=== PATIENT | male | born 1955 | race Caucasian/White ===

== ENCOUNTER 2016-12-30 20:11 | Inpatient (IN) | payer MEDICAID ==
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
[2016-12-30 22:16] LABS: BASO % 0.1 % (0.0-2.0); EOS # 0.3 K/uL (0.0-0.7); EOS % 0.8 % (0.0-4.0); LYMPH % 91.5 % (20.0-40.0); MEAN CELL VOLUME 92.9 fl (80.0-94.0); MEAN CORPUSCULAR HEMOGLOBIN 30.2 pg (27.0-31.0); MEAN CORPUSCULAR HGB CONC 32.5 g/dL (33.0-37.0); MEAN PLATELET VOLUME 8.4 fl (7.2-11.7); MONO # 0.6 K/uL (0.0-0.8); MONO % 1.6 % (0.0-10.0); NEUT # 2.4 K/uL (1.8-7.0); NRBC % 0.5 % (0.0-0.0); PLATELET COUNT 164 K/uL (130-400); RED CELL DISTRIBUTION WIDTH 15.6 % (11.5-14.5)
[2016-12-30 22:23] LABS: BLOOD UREA NITROGEN 16 mg/dl (9-20); CALCIUM 9.3 mg/dL (8.4-10.2); CARBON DIOXIDE 26 mmol/L (22-30); CHLORIDE 105 mmol/L (98-107); GFR AFRICAN-AMERICAN > 60; GLUCOSE,RANDOM 96 mg/dL (75-110); POTASSIUM 3.9 MMOL/L (3.6-5.0); SODIUM 139 mmol/l (132-148)
[2016-12-30 22:43] LABS: WHITE BLOOD COUNT 39.4 K/uL (4.8-10.8)
[2016-12-30] MEDS ORDERED: Sodium Chloride 0.9% 50 ML IV ONE (22:55)
[2016-12-30] MEDS ORDERED: Iodixanol 320 MG/ML 100 ML BOTTLE IV ONE (22:55)
[2016-12-30] MEDS ORDERED: levoFLOXacin 500 mg in D5W 500 MG/100 ML BAG IVPB STA (23:11)
[2016-12-30 23:15] LABS: NEUTROPHIL 3 % (42-75); TOTAL CELLS COUNTED 100
[2016-12-30 23:16] LABS: EOSINOPHIL 2 % (0-7)
[2016-12-30 23:41] LABS: VENOUS BLOOD GAS BASE EXCESS 4.1 mmol/L (0.0-2.0); VENOUS BLOOD GAS PCO2 41 mmHg (40-60); VENOUS BLOOD PH 7.45 (7.32-7.43)
[2016-12-30 23:44] LABS: BASO # 0.1 K/uL (0.0-0.2); BASO % 0.2 % (0.0-2.0); EOS # 0.3 K/uL (0.0-0.7); EOS % 0.8 % (0.0-4.0); LYMPH % 91.3 % (20.0-40.0); MEAN CELL VOLUME 93.1 fl (80.0-94.0); MEAN CORPUSCULAR HEMOGLOBIN 29.6 pg (27.0-31.0); MEAN CORPUSCULAR HGB CONC 31.8 g/dL (33.0-37.0); MEAN PLATELET VOLUME 8.3 fl (7.2-11.7); MONO # 0.6 K/uL (0.0-0.8); MONO % 1.4 % (0.0-10.0); NEUT # 2.5 K/uL (1.8-7.0); NEUT % 6.3 % (50.0-75.0); NRBC % 0.4 % (0.0-0.0); RED CELL DISTRIBUTION WIDTH 15.3 % (11.5-14.5)
[2016-12-30 23:49] LABS: WHITE BLOOD COUNT 39.4 K/uL (4.8-10.8)
[2016-12-30 23:57] LABS: PARTIAL THROMBOPLASTIN TIME 34.4 Seconds (25.6-37.1)
[2016-12-31] MEDS ORDERED: levoFLOXacin 500 mg in D5W 500 MG/100 ML BAG IVPB ONE (00:09)
--- NOTE | 2016-12-31 00:17 | ED PDOC ---
- Laboratory Results Result Diagrams: 12/31/16 08:38 12/31/16 08:38 - ECG O2 Sat by Pulse Oximetry: 100 (RA) Pulse Ox Interpretation: Normal Medical Decision Making Medical Decision Makin:15 Patient signed out to me from Dr. Aguero. CT scan pending. 00:[address] scan reviewed. Findings noted as follows: No pulmonary embolism. No aortic dissection or aneurysm. No pleural or pericardial effussions. Faint bibasilar hazy opacities. Linear consolidation in the right lung base and bandlike consolidation in the left lower lung, likely platelike atelectasis. There appears to be intraluminal material in the bronchi supplying the left lower lung consolidation on series 3 images 72 through 77. Mediastinal lymph nodes are present. Punctate 3 mm partially calcified nodule right midlung There are innumerable renal lesions of varying attenuation (hypo, iso, hyper) incompletely evaluated on this study. Recommend followup imaging as seen previously. There is a faint 4 cm right hepatic lesion that does not appear to represent a simple cyst and followup is recommended. Compression fracture with anterior angulation T12 age indeterminate. IMPRESSION: Bilateral lower lung consolidation greater on the left, where there appears to be endobronchial material. Non acute findings in the upper abdomen for which followup is recommended as discussed above. 00:30 Patient will be admitted for further treatment and stabilization. Case was discussed with Larry Ruvalcaba NUCLEAR W[employer]E PROCESS OPERATOR for Dr. Salazar, medicine pulmonology physician. Diagnoses: pneumonia, leukocytosis Scribe Attestation: Documented by Sheeba Muñoz, acting as a scribe for Miguel Pace MD. Provider Scribe Attestation: All medical record entries made by the Scribe were at my direction and personally dictated by me. I have reviewed the chart and agree that the record accurately reflects my personal performance of the history, physical exam, medical decision making, and the department course for this patient. I have also personally directed, reviewed, and agree with the discharge instructions and disposition. Disposition Discussed With : Larry Ruvalcaba Doctor Will See Patient In The: Hospital Counseled Patient/Family Regarding: Studies Performed, Diagnosis - Clinical Impression Clinical Impression: Pneumonia, Leukocytosis - POA Present On Arrival: None - Disposition Disposition: Transfer of Care Disposition Time: 00:30 Condition: FAIR
--- NOTE | 2016-12-31 00:19 | CT ---
EXAM: CT Angiography Chest With Intravenous Contrast EXAM DATE/TIME: 12/30/2016 10:48 PM CLINICAL HISTORY: 61 years old, male; Pain; Chest pain; Left-sided chest pain TECHNIQUE: Axial computed tomographic angiography images of the chest with intravenous contrast using pulmonary embolism protocol. All CT scans at this facility use one or more dose reduction techniques, viz.: automated exposure control; ma/kV adjustment per patient size (including targeted exams where dose is matched to indication; i.e. head); or iterative reconstruction technique. MIP reconstructed images were created and reviewed. Coronal and sagittal reformatted images were created and reviewed. CONTRAST: 80 mL of [id number] administered intravenously. COMPARISON: No relevant prior studies available. FINDINGS: No pulmonary embolism. No aortic dissection or aneurysm. No pleural or pericardial effussions. Faint bibasilar hazy opacities. Linear consolidation in the right lung base and bandlike consolidation in the left lower lung, likely platelike atelectasis. There appears to be intraluminal material in the bronchi supplying the left lower lung consolidation on series 3 images 72 through 77. Mediastinal lymph nodes are present. Punctate 3 mm partially calcified nodule right midlung There are innumerable renal lesions of varying attenuation (hypo, iso, hyper) incompletely evaluated on this study. Recommend followup imaging as seen previously. There is a faint 4 cm right hepatic lesion that does not appear to represent a simple cyst and followup is recommended. Compression fracture with anterior angulation T12 age indeterminate. IMPRESSION: Bilateral lower lung consolidation greater on the left, where there appears to be endobronchial material. Non acute findings in the upper abdomen for which followup is recommended as discussed above
[2016-12-31] MEDS ORDERED: cefTRIAXone (Rocephin) 1 gm Inj ONE (01:40)
[2016-12-31] MEDS ORDERED: Influenza Vaccine 18yr & older 0.5 ML/45 MCG SYR IM ONE (05:44)
[2016-12-31] MEDS ORDERED: Albuterol-Ipratrop 3 mg / 0.5 (3 ml) UD INH PRN (06:38)
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
--- NOTE | 2016-12-31 08:45 | CARD ---
APPROVED REPORT EKG Measurement Heart [id number] <Conclusion> Normal sinus rhythm Minimal voltage criteria for LVH, may be normal variant Borderline ECG
[2016-12-31 08:58] LABS: HEMATOCRIT 34.5 % (35.0-51.0); MEAN CELL VOLUME 93.6 fl (80.0-94.0); MEAN CORPUSCULAR HEMOGLOBIN 29.7 pg (27.0-31.0); MEAN CORPUSCULAR HGB CONC 31.7 g/dL (33.0-37.0); RED CELL DISTRIBUTION WIDTH 15.3 % (11.5-14.5); WHITE BLOOD COUNT 35.7 K/uL (4.8-10.8)
[2016-12-31 09:12] LABS: ALB/GLOB RATIO 1.4 (1.0-2.1); ALKALINE PHOSPHATASE 67 U/L (38-126); ALT/SGPT 27 U/L (21-72); AST/SGOT 20 U/L (17-59); BILIRUBIN,TOTAL 0.5 mg/dl (0.2-1.3); BLOOD UREA NITROGEN 15 mg/dl (9-20); CALCIUM 9.1 mg/dL (8.4-10.2); CARBON DIOXIDE 25 mmol/L (22-30); CHLORIDE 106 mmol/L (98-107); GFR AFRICAN-AMERICAN > 60; GLUCOSE,RANDOM 86 mg/dL (75-110); POTASSIUM 3.4 MMOL/L (3.6-5.0); SODIUM 140 mmol/l (132-148); TOTAL PROTEIN 6.2 G/DL (6.3-8.2)
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
[2016-12-31] MEDS ORDERED: Potassium Chloride 20 mEq ER Tab PO ONE (09:42)
[2016-12-31] MEDS: Enoxaparin 40 mg Syringe SC SCH (10:11)
[2016-12-31] MEDS ORDERED: Sodium Chloride 3% for Inhalation 4 ML VIAL.NEB IH PRN (11:20)
[2016-12-31 12:08] LABS: IRON 100 ug/dL (49-181)
[2016-12-31] MEDS: levoFLOXacin 500 mg in D5W 500 MG/100 ML BAG IVPB SCH (12:53)
[2016-12-31 18:11] LABS: FOLATE 5.9 ng/mL
[2017-01-01 07:37] LABS: HEMATOCRIT 35.1 % (35.0-51.0); MEAN CELL VOLUME 93.5 fl (80.0-94.0); MEAN CORPUSCULAR HGB CONC 32.1 g/dL (33.0-37.0); RED CELL DISTRIBUTION WIDTH 15.2 % (11.5-14.5); WHITE BLOOD COUNT 29.8 K/uL (4.8-10.8)
[2017-01-01 07:51] LABS: BLOOD UREA NITROGEN 11 mg/dl (9-20); CALCIUM 9.5 mg/dL (8.4-10.2); CARBON DIOXIDE 24 mmol/L (22-30); CHLORIDE 108 mmol/L (98-107); GFR AFRICAN-AMERICAN > 60; GLUCOSE,RANDOM 91 mg/dL (75-110); POTASSIUM 3.8 MMOL/L (3.6-5.0); SODIUM 141 mmol/l (132-148)
[2017-01-01] MEDS: levoFLOXacin 500 mg in D5W 500 MG/100 ML BAG IVPB SCH (09:38)
[2017-01-01] MEDS: Enoxaparin 40 mg Syringe SC SCH (09:39)
[2017-01-01] MEDS: Promethazine DM 6.25 mg-15 mg/5 ml Syrup PO PRN ×2 (09:40→21:29)
--- NOTE | 2017-01-01 10:31 | CP.PCM.PN ---
Subjective - Date & Time of Evaluation Date of Evaluation: 01/01/17 Time of Evaluation: 10:31 - Subjective Subjective: doing well, no complaints except mild improving left pleurictic cp no f/c, n/v/d wbc trending down to 29 bw noted Objective - Vital Signs/Intake and Output Vital Signs (last 24 hours): Temp Pulse Resp BP Pulse Ox 98.2 F 60 18 137/82 98 01/01/17 08:16 01/01/17 08:16 01/01/17 08:16 01/01/17 08:16 01/01/17 08:16 - Medications Medications: Current Medications Albuterol/Ipratropium (Duoneb 3 Mg/0.5 Mg (3 Ml) Ud) 3 ml INH RQ4 PRN PRN Reason: Shortness of Breath Cyanocobalamin (Vitamin B12 1000 Mcg/Ml Inj) 1,000 mcg IM DAILY [facility] Last Admin: 01/01/17 09:40 Dose: 1,000 mcg Enoxaparin Sodium (Lovenox) 40 mg SC DAILY [facility] PRN Reason: Protocol Last Admin: 01/01/17 09:39 Dose: 40 mg Levofloxacin/Dextrose (Levaquin 500mg) 500 mg in 100 mls @ 100 mls/hr IVPB DAILY [facility] Last Admin: 01/01/17 09:38 Dose: 100 mls/hr Ceftriaxone Sodium 1 gm/ (Sodium Chloride) 100 mls @ 100 mls/hr IVPB DAILY [facility] Last Admin: 01/01/17 09:36 Dose: 100 mls/hr Promethazine HCl/Dextromethorphan (Phenergan Dm Syrup) 5 ml PO Q6 PRN PRN Reason: Cough Last Admin: 01/01/17 09:40 Dose: 5 ml - Labs Labs: 01/01/17 07:00 01/01/17 05:30 PT 11.4 Seconds (9.8-13.1) 12/30/16 23:44 INR 1.1 (0.9-1.2) 12/30/16 23:44 APTT 34.4 Seconds (25.6-37.1) 12/30/16 23:44 - Constitutional Appears: Well, Non-toxic, No Acute Distress - Head Exam Head Exam: ATRAUMATIC, NORMAL INSPECTION, NORMOCEPHALIC - Eye Exam Eye Exam: EOMI, Normal appearance, PERRL Pupil Exam: NORMAL ACCOMODATION, PERRL - ENT Exam ENT Exam: Mucous Membranes Moist, Normal Exam - Neck Exam Neck Exam: Full ROM, Normal Inspection. absent: Lymphadenopathy - Respiratory Exam Respiratory Exam: Clear to Ausculation Bilateral, NORMAL BREATHING PATTERN - Cardiovascular Exam Cardiovascular Exam: REGULAR RHYTHM, RRR, +S1, +S2. absent: Murmur - GI/Abdominal Exam GI & Abdominal Exam: Soft, Normal Bowel Sounds. absent: Tenderness - Extremities Exam Extremities Exam: Full ROM, Normal Capillary Refill, Normal Inspection. absent : Joint Swelling, Pedal Edema - Back Exam Back Exam: NORMAL INSPECTION - Neurological Exam Neurological Exam: Alert, Awake, CN II-XII Intact, Normal Gait, Oriented x3 - Psychiatric Exam Psychiatric exam: Normal Affect, Normal Mood - Skin Skin Exam: Dry, Intact, Normal Color, Warm Assessment and Plan (1) DVT prophylaxis Status: Acute (2) Leukocytosis Status: Acute (3) Pneumonia Status: Acute - Assessment and Plan (Free Text) Assessment: (1) DVT prophylaxis Assessment and Plan: scd and aehose lovenox Status: Acute (2) Leukocytosis Assessment and Plan: likely r/t infection, trending down. will monitor. trending down, heme/onc consult appriciated ivf Status: Acute (3) Pneumonia Assessment and Plan: rocephin/levaquin repeat cxr pulm if norelief but pt is exercise tolerant duoneb/phenergen Status: Acute
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
--- NOTE | 2017-01-01 14:15 | CP.PCM.PN ---
Subjective - Date & Time of Evaluation Date of Evaluation: 01/01/17 Time of Evaluation: 14:00 - Subjective Subjective: Feeling better Objective - Vital Signs/Intake and Output Vital Signs (last 24 hours): Temp Pulse Resp BP Pulse Ox 98 F 72 18 120/73 97 01/01/17 12:13 01/01/17 12:13 01/01/17 12:13 01/01/17 12:13 01/01/17 12:13 - Medications Medications: Current Medications Albuterol/Ipratropium (Duoneb 3 Mg/0.5 Mg (3 Ml) Ud) 3 ml INH RQ4 PRN PRN Reason: Shortness of Breath Cyanocobalamin (Vitamin B12 1000 Mcg/Ml Inj) 1,000 mcg IM DAILY [facility] Last Admin: 01/01/17 09:40 Dose: 1,000 mcg Enoxaparin Sodium (Lovenox) 40 mg SC DAILY [facility] PRN Reason: Protocol Last Admin: 01/01/17 09:39 Dose: 40 mg Levofloxacin/Dextrose (Levaquin 500mg) 500 mg in 100 mls @ 100 mls/hr IVPB DAILY [facility] Last Admin: 01/01/17 09:38 Dose: 100 mls/hr Ceftriaxone Sodium 1 gm/ (Sodium Chloride) 100 mls @ 100 mls/hr IVPB DAILY [facility] Last Admin: 01/01/17 09:36 Dose: 100 mls/hr Promethazine HCl/Dextromethorphan (Phenergan Dm Syrup) 5 ml PO Q6 PRN PRN Reason: Cough Last Admin: 01/01/17 09:40 Dose: 5 ml - Labs Labs: 01/01/17 07:00 01/01/17 05:30 PT 11.4 Seconds (9.8-13.1) 12/30/16 23:44 INR 1.1 (0.9-1.2) 12/30/16 23:44 APTT 34.4 Seconds (25.6-37.1) 12/30/16 23:44 - Head Exam Head Exam: ATRAUMATIC - Eye Exam Eye Exam: Normal appearance - ENT Exam ENT Exam: Mucous Membranes Dry - Respiratory Exam Respiratory Exam: NORMAL BREATHING PATTERN - Cardiovascular Exam Cardiovascular Exam: +S1, +S2 - GI/Abdominal Exam GI & Abdominal Exam: Normal Bowel Sounds - Extremities Exam Extremities Exam: Normal Inspection Assessment and Plan (1) Leukocytosis Assessment & Plan: on antibiotics improving flow cytometery to rule out CLL given lymphocytosis Status: Acute (2) Anemia Assessment & Plan: iron and b12 supplementation Status: Acute
--- NOTE | 2017-01-01 16:50 | RAD ---
HISTORY: pna, leukocytosis COMPARISON: Comparison is made to 12/30/2016 TECHNIQUE: Chest PA and lateral FINDINGS: LUNGS: There is infiltrate seen at the posterior aspect of the left lower lobe in the lateral view suspicious for pneumonia. PLEURA: Blunting of the left costophrenic angle suspicious for small pleural effusion. CARDIOVASCULAR: Normal. OSSEOUS STRUCTURES: No significant abnormalities. VISUALIZED UPPER ABDOMEN: Normal. OTHER FINDINGS: None. IMPRESSION: Suspicious for infiltrate at the posterior lower portion of the left lung lower lobe likely associated with small pleural effusion. Otherwise no interval change.
[2017-01-02 06:54] LABS: BASO % 0.1 % (0.0-2.0); EOS # 0.2 K/uL (0.0-0.7); EOS % 0.8 % (0.0-4.0); HEMATOCRIT 34.4 % (35.0-51.0); LYMPH # 24.2 K/uL (1.0-4.3); LYMPH % 84.5 % (20.0-40.0); MEAN CELL VOLUME 93.3 fl (80.0-94.0); MEAN CORPUSCULAR HGB CONC 32.2 g/dL (33.0-37.0); MEAN PLATELET VOLUME 8.8 fl (7.2-11.7); MONO # 0.6 K/uL (0.0-0.8); MONO % 2.1 % (0.0-10.0); NEUT # 3.6 K/uL (1.8-7.0); NEUT % 12.5 % (50.0-75.0); NRBC % 0.2 % (0.0-0.0); RED CELL DISTRIBUTION WIDTH 15.2 % (11.5-14.5); WHITE BLOOD COUNT 28.7 K/uL (4.8-10.8)
[2017-01-02 07:18] LABS: ALB/GLOB RATIO 1.3 (1.0-2.1); ALKALINE PHOSPHATASE 60 U/L (38-126); ALT/SGPT 23 U/L (21-72); AST/SGOT 18 U/L (17-59); BILIRUBIN,TOTAL 0.4 mg/dl (0.2-1.3); BLOOD UREA NITROGEN 12 mg/dl (9-20); CALCIUM 9.5 mg/dL (8.4-10.2); CARBON DIOXIDE 25 mmol/L (22-30); CHLORIDE 107 mmol/L (98-107); GFR AFRICAN-AMERICAN > 60; GLUCOSE,RANDOM 86 mg/dL (75-110); POTASSIUM 4.2 MMOL/L (3.6-5.0); SODIUM 142 mmol/l (132-148); TOTAL PROTEIN 6.1 G/DL (6.3-8.2)
--- NOTE | 2017-01-02 09:49 | CP.PCM.PN ---
Subjective - Date & Time of Evaluation Date of Evaluation: 01/02/17 Time of Evaluation: 09:47 - Subjective Subjective: pt doing well, ambulatory w/o dyspnea. nof /c,nv.//d still w/ pleuritic cp w/ cough. cxr redemonstrates lll infiltrate. wbc 28 heme/onc note appriciated. flow cytometry pending Objective - Vital Signs/Intake and Output Vital Signs (last 24 hours): Temp Pulse Resp BP Pulse Ox 98.2 F 67 18 137/77 97 01/02/17 08:06 01/02/17 08:06 01/02/17 08:06 01/02/17 08:06 01/02/17 08:06 - Medications Medications: Current Medications Albuterol/Ipratropium (Duoneb 3 Mg/0.5 Mg (3 Ml) Ud) 3 ml INH RQ4 PRN PRN Reason: Shortness of Breath Cyanocobalamin (Vitamin B12 1000 Mcg/Ml Inj) 1,000 mcg IM DAILY [facility] Last Admin: 01/01/17 09:40 Dose: 1,000 mcg Enoxaparin Sodium (Lovenox) 40 mg SC DAILY [facility] PRN Reason: Protocol Last Admin: 01/01/17 09:39 Dose: 40 mg Levofloxacin/Dextrose (Levaquin 500mg) 500 mg in 100 mls @ 100 mls/hr IVPB DAILY [facility] Last Admin: 01/01/17 09:38 Dose: 100 mls/hr Ceftriaxone Sodium 1 gm/ (Sodium Chloride) 100 mls @ 100 mls/hr IVPB DAILY [facility] Last Admin: 01/01/17 09:36 Dose: 100 mls/hr Promethazine HCl/Dextromethorphan (Phenergan Dm Syrup) 5 ml PO Q6 PRN PRN Reason: Cough Last Admin: 01/01/17 21:29 Dose: 5 ml - Labs Labs: 01/02/17 05:45 01/02/17 05:45 PT 11.4 Seconds (9.8-13.1) 12/30/16 23:44 INR 1.1 (0.9-1.2) 12/30/16 23:44 APTT 34.4 Seconds (25.6-37.1) 12/30/16 23:44 - Constitutional Appears: Well, Non-toxic, No Acute Distress - Head Exam Head Exam: ATRAUMATIC, NORMAL INSPECTION, NORMOCEPHALIC - Eye Exam Eye Exam: EOMI, Normal appearance, PERRL Pupil Exam: NORMAL ACCOMODATION, PERRL - ENT Exam ENT Exam: Mucous Membranes Moist, Normal Exam - Neck Exam Neck Exam: Full ROM, Normal Inspection. absent: Lymphadenopathy - Respiratory Exam Respiratory Exam: Clear to Ausculation Bilateral, NORMAL BREATHING PATTERN - Cardiovascular Exam Cardiovascular Exam: REGULAR RHYTHM, RRR, +S1, +S2. absent: Murmur - GI/Abdominal Exam GI & Abdominal Exam: Soft, Normal Bowel Sounds. absent: Tenderness - Extremities Exam Extremities Exam: Full ROM, Normal Capillary Refill, Normal Inspection. absent : Joint Swelling, Pedal Edema - Back Exam Back Exam: NORMAL INSPECTION - Neurological Exam Neurological Exam: Alert, Awake, CN II-XII Intact, Normal Gait, Oriented x3 - Psychiatric Exam Psychiatric exam: Normal Affect, Normal Mood - Skin Skin Exam: Dry, Intact, Normal Color, Warm Assessment and Plan (1) DVT prophylaxis Status: Acute (2) Leukocytosis Status: Acute (3) Pneumonia Status: Acute - Assessment and Plan (Free Text) Assessment: (1) DVT prophylaxis Assessment and Plan: scd and aehose lovenox Status: Acute (2) Leukocytosis Assessment and Plan: likely r/t infection, trending down. will monitor. trending down, heme/onc consult appriciated ivf flow cytometry to r/o cll as per heme/onc Status: Acute (3) Pneumonia Assessment and Plan: rocephin/levaquin repeat cxr noted pulm if norelief but pt is exercise tolerant, doing well duoneb/phenergen Status: Acute
[2017-01-02] MEDS: Enoxaparin 40 mg Syringe SC SCH (09:51)
[2017-01-02] MEDS: levoFLOXacin 500 mg in D5W 500 MG/100 ML BAG IVPB SCH (09:52)
[2017-01-02] MEDS: Promethazine DM 6.25 mg-15 mg/5 ml Syrup PO PRN ×2 (12:21→20:44)
--- NOTE | 2017-01-03 01:35 | CP.PCM.PN ---
Subjective - Date & Time of Evaluation Date of Evaluation: 01/02/17 Time of Evaluation: 16:00 - Subjective Subjective: Feeling better Objective - Vital Signs/Intake and Output Vital Signs (last 24 hours): Temp Pulse Resp BP Pulse Ox 97.6 F 65 18 129/73 97 01/03/17 00:00 01/03/17 00:00 01/03/17 00:00 01/03/17 00:00 01/03/17 00:00 - Medications Medications: Current Medications Albuterol/Ipratropium (Duoneb 3 Mg/0.5 Mg (3 Ml) Ud) 3 ml INH RQ4 PRN PRN Reason: Shortness of Breath Cyanocobalamin (Vitamin B12 1000 Mcg/Ml Inj) 1,000 mcg IM DAILY [facility] Last Admin: 01/02/17 09:52 Dose: 1,000 mcg Enoxaparin Sodium (Lovenox) 40 mg SC DAILY [facility] PRN Reason: Protocol Last Admin: 01/02/17 09:51 Dose: 40 mg Levofloxacin/Dextrose (Levaquin 500mg) 500 mg in 100 mls @ 100 mls/hr IVPB DAILY [facility] Last Admin: 01/02/17 09:52 Dose: 100 mls/hr Ceftriaxone Sodium 1 gm/ (Sodium Chloride) 100 mls @ 100 mls/hr IVPB DAILY [facility] Last Admin: 01/02/17 09:52 Dose: 100 mls/hr Ibuprofen (Motrin Tab) 600 mg PO Q6 PRN PRN Reason: Pain, moderate (4-7) Last Admin: 01/02/17 20:43 Dose: 600 mg Promethazine HCl/Dextromethorphan (Phenergan Dm Syrup) 5 ml PO Q6 PRN PRN Reason: Cough Last Admin: 01/02/17 20:44 Dose: 5 ml - Labs Labs: 01/02/17 05:45 01/02/17 05:45 PT 11.4 Seconds (9.8-13.1) 12/30/16 23:44 INR 1.1 (0.9-1.2) 12/30/16 23:44 APTT 34.4 Seconds (25.6-37.1) 12/30/16 23:44 - Head Exam Head Exam: ATRAUMATIC - Eye Exam Eye Exam: Normal appearance - ENT Exam ENT Exam: Mucous Membranes Dry - Respiratory Exam Respiratory Exam: NORMAL BREATHING PATTERN - Cardiovascular Exam Cardiovascular Exam: +S1, +S2 - GI/Abdominal Exam GI & Abdominal Exam: Normal Bowel Sounds - Extremities Exam Extremities Exam: Normal Inspection Assessment and Plan (1) Leukocytosis Assessment & Plan: on antibiotics and improving flow cytometery sent to rule out CLL Status: Acute (2) Anemia Assessment & Plan: b12 deficiency on supplementation borderline iron stores Status: Acute
[2017-01-03] MEDS: Promethazine DM 6.25 mg-15 mg/5 ml Syrup PO PRN (05:31)
[2017-01-03 08:12] LABS: ALB/GLOB RATIO 1.3 (1.0-2.1); ALKALINE PHOSPHATASE 60 U/L (38-126); ALT/SGPT 27 U/L (21-72); AST/SGOT 15 U/L (17-59); BILIRUBIN,TOTAL 0.4 mg/dl (0.2-1.3); BLOOD UREA NITROGEN 15 mg/dl (9-20); CALCIUM 9.4 mg/dL (8.4-10.2); CARBON DIOXIDE 22 mmol/L (22-30); CHLORIDE 108 mmol/L (98-107); GFR AFRICAN-AMERICAN > 60; GLUCOSE,RANDOM 86 mg/dL (75-110); SODIUM 138 mmol/l (132-148); TOTAL PROTEIN 6.2 G/DL (6.3-8.2)
[2017-01-03 08:13] LABS: BASO % 0.1 % (0.0-2.0); EOS # 0.2 K/uL (0.0-0.7); EOS % 0.7 % (0.0-4.0); HEMATOCRIT 35.3 % (35.0-51.0); LYMPH # 25.2 K/uL (1.0-4.3); LYMPH % 87.5 % (20.0-40.0); MEAN CELL VOLUME 92.5 fl (80.0-94.0); MEAN CORPUSCULAR HEMOGLOBIN 30.3 pg (27.0-31.0); MEAN CORPUSCULAR HGB CONC 32.8 g/dL (33.0-37.0); MEAN PLATELET VOLUME 8.6 fl (7.2-11.7); MONO # 0.5 K/uL (0.0-0.8); MONO % 1.8 % (0.0-10.0); NEUT # 2.8 K/uL (1.8-7.0); NEUT % 9.9 % (50.0-75.0); NRBC % 0.2 % (0.0-0.0); PLATELET COUNT 164 K/uL (130-400); RED CELL DISTRIBUTION WIDTH 15.2 % (11.5-14.5); WHITE BLOOD COUNT 28.7 K/uL (4.8-10.8)
--- NOTE | 2017-01-03 08:16 | CP.PCM.PN ---
Subjective - Date & Time of Evaluation Date of Evaluation: 01/03/17 Time of Evaluation: 08:15 - Subjective Subjective: doignw ell, less pleuritic pain. no f/c, n/v/d pending am labs. nocomplaints. Objective - Vital Signs/Intake and Output Vital Signs (last 24 hours): Temp Pulse Resp BP Pulse Ox 97.6 F 65 18 129/73 97 01/03/17 00:00 01/03/17 00:00 01/03/17 00:00 01/03/17 00:00 01/03/17 00:00 - Medications Medications: Current Medications Albuterol/Ipratropium (Duoneb 3 Mg/0.5 Mg (3 Ml) Ud) 3 ml INH RQ4 PRN PRN Reason: Shortness of Breath Cyanocobalamin (Vitamin B12 1000 Mcg/Ml Inj) 1,000 mcg IM DAILY [facility] Last Admin: 01/02/17 09:52 Dose: 1,000 mcg Enoxaparin Sodium (Lovenox) 40 mg SC DAILY [facility] PRN Reason: Protocol Last Admin: 01/02/17 09:51 Dose: 40 mg Levofloxacin/Dextrose (Levaquin 500mg) 500 mg in 100 mls @ 100 mls/hr IVPB DAILY [facility] Last Admin: 01/02/17 09:52 Dose: 100 mls/hr Ceftriaxone Sodium 1 gm/ (Sodium Chloride) 100 mls @ 100 mls/hr IVPB DAILY [facility] Last Admin: 01/02/17 09:52 Dose: 100 mls/hr Ibuprofen (Motrin Tab) 600 mg PO Q6 PRN PRN Reason: Pain, moderate (4-7) Last Admin: 01/03/17 05:30 Dose: 600 mg Promethazine HCl/Dextromethorphan (Phenergan Dm Syrup) 5 ml PO Q6 PRN PRN Reason: Cough Last Admin: 01/03/17 05:31 Dose: 5 ml - Labs Labs: 01/02/17 05:45 01/02/17 05:45 PT 11.4 Seconds (9.8-13.1) 12/30/16 23:44 INR 1.1 (0.9-1.2) 12/30/16 23:44 APTT 34.4 Seconds (25.6-37.1) 12/30/16 23:44 - Constitutional Appears: Well, Non-toxic, No Acute Distress - Head Exam Head Exam: ATRAUMATIC, NORMAL INSPECTION, NORMOCEPHALIC - Eye Exam Eye Exam: EOMI, Normal appearance, PERRL Pupil Exam: NORMAL ACCOMODATION, PERRL - ENT Exam ENT Exam: Mucous Membranes Moist, Normal Exam - Neck Exam Neck Exam: Full ROM, Normal Inspection. absent: Lymphadenopathy - Respiratory Exam Respiratory Exam: Clear to Ausculation Bilateral, NORMAL BREATHING PATTERN - Cardiovascular Exam Cardiovascular Exam: REGULAR RHYTHM, RRR, +S1, +S2. absent: Murmur - GI/Abdominal Exam GI & Abdominal Exam: Soft, Normal Bowel Sounds. absent: Tenderness - Exam Exam: Testicular Vertical Lie - Extremities Exam Extremities Exam: Full ROM, Normal Capillary Refill, Normal Inspection. absent : Joint Swelling, Pedal Edema - Back Exam Back Exam: NORMAL INSPECTION - Neurological Exam Neurological Exam: Alert, Awake, CN II-XII Intact, Normal Gait, Oriented x3 - Psychiatric Exam Psychiatric exam: Normal Affect, Normal Mood - Skin Skin Exam: Dry, Intact, Normal Color, Warm Assessment and Plan (1) DVT prophylaxis Status: Acute (2) Leukocytosis Status: Acute (3) Pneumonia Status: Acute - Assessment and Plan (Free Text) Assessment: (1) DVT prophylaxis Assessment and Plan: scd and aehose lovenox Status: Acute (2) Leukocytosis Assessment and Plan: likely r/t infection, trending down. will monitor. trending down, heme/onc consult appriciated ivf flow cytometry to r/o cll as per heme/onc Status: Acute (3) Pneumonia Assessment and Plan: rocephin/levaquin repeat cxr noted pulm if norelief but pt is exercise tolerant, doing well duoneb/phenergen cont to improve Status: Acute
[2017-01-03] MEDS: Enoxaparin 40 mg Syringe SC SCH (08:50)
--- NOTE | 2017-01-03 10:28 | PQF PNEUMO ---
This form is a permanent part of the medical record 01/03/17 Larry Ruvalcaba APN, Please specify TYPE of PNEUMONIA AFTER workup if known. Patient is visiting from [place]. He presents with left sided chest pain and a cough. CT Chest: Bilateral lower lung consolidation greater on the left where there appears to be endobronchial material. EKG: NSR. WBC 39.4 with a R shift, + lymphocytosis, afebrile. Medication includes Rocephin and Levaquin. Clarification of your documentation is requested to better reflect the severity of illness and intensity of treatment of your patient. Indicators present [x] Documented diagnosis of pneumonia [x] X-ray findings: + [] Positive Sputum cultures : PENDING [x] Cough [] Abnormal lungs sounds [] Poor gag reflex [] Speech consults/swallow evaluation [] Vent dependence [] Other: [] Location in the medical record that reflects the above clinical findings: [] Treatment Provided: [x] Dual IVAB PHYSICIAN'S RESPONSE Based on your medical judgment of the clinical indicators outlined above, are you treating this patient for a known or suspected: [] Aspiration pneumonia [] Viral pneumonia [x] Bacterial pneumonia Please specify organism if known [] unkn CAP [x] Bronchopneumonia [] Interstitial [] Other, please indicate [] If Unable to Determine, please check the box, sign and date. Note: CAP, HAP, and HCAP indicate where the pneumonia was acquired, not a specific type. Present On Admission (POA) Indicator: [x] Present at the time of admission [] Not present at the time of admission [] Clinically Undetermined In responding to this query, please exercise your independent professional judgment. The fact that a question is asked does not imply that any particular answer is desired or expected. Thank you for your clarification on this documentation. If you have any questions please call:[phone] * Thank you, Giovanna Araya RN [facility]
[2017-01-03 11:01] LABS: EOSINOPHIL 1 % (0-7); NEUTROPHIL 8 % (42-75); SMUDGE CELLS PRESENT; TOTAL CELLS COUNTED 100
[2017-01-03] MEDS: levoFLOXacin 500 mg in D5W 500 MG/100 ML BAG IVPB SCH (12:58)
[2017-01-04] MEDS: Promethazine DM 6.25 mg-15 mg/5 ml Syrup PO PRN (04:15)
[2017-01-04 07:03] LABS: BASO % 0.1 % (0.0-2.0); EOS # 0.3 K/uL (0.0-0.7); EOS % 0.9 % (0.0-4.0); HEMATOCRIT 34.1 % (35.0-51.0); LYMPH # 28.7 K/uL (1.0-4.3); LYMPH % 87.2 % (20.0-40.0); MEAN CELL VOLUME 93.2 fl (80.0-94.0); MEAN CORPUSCULAR HEMOGLOBIN 30.1 pg (27.0-31.0); MEAN CORPUSCULAR HGB CONC 32.2 g/dL (33.0-37.0); MEAN PLATELET VOLUME 8.3 fl (7.2-11.7); MONO # 0.7 K/uL (0.0-0.8); MONO % 2.1 % (0.0-10.0); NEUT # 3.2 K/uL (1.8-7.0); NEUT % 9.7 % (50.0-75.0); NRBC % 0.3 % (0.0-0.0); RED CELL DISTRIBUTION WIDTH 15.3 % (11.5-14.5); WHITE BLOOD COUNT 32.9 K/uL (4.8-10.8)
[2017-01-04 07:10] LABS: ALB/GLOB RATIO 1.4 (1.0-2.1); ALKALINE PHOSPHATASE 58 U/L (38-126); ALT/SGPT 22 U/L (21-72); AST/SGOT 16 U/L (17-59); BILIRUBIN,TOTAL 0.4 mg/dl (0.2-1.3); BLOOD UREA NITROGEN 18 mg/dl (9-20); CALCIUM 9.3 mg/dL (8.4-10.2); CARBON DIOXIDE 23 mmol/L (22-30); CHLORIDE 106 mmol/L (98-107); GFR AFRICAN-AMERICAN > 60; GLUCOSE,RANDOM 81 mg/dL (75-110); POTASSIUM 4.1 MMOL/L (3.6-5.0); SODIUM 142 mmol/l (132-148); TOTAL PROTEIN 6.2 G/DL (6.3-8.2)
--- NOTE | 2017-01-04 07:23 | CP.PCM.PN ---
Subjective - Date & Time of Evaluation Date of Evaluation: 01/04/17 Time of Evaluation: 07:22 - Subjective Subjective: pt doign well, no complaints offered. less cough. nof /c, n/v/d. wbc back up to 32. Objective - Vital Signs/Intake and Output Vital Signs (last 24 hours): Temp Pulse Resp BP Pulse Ox 98.1 F 61 18 157/88 H 99 01/04/17 00:30 01/04/17 00:30 01/04/17 00:30 01/04/17 00:30 01/04/17 00:30 - Medications Medications: Current Medications Albuterol/Ipratropium (Duoneb 3 Mg/0.5 Mg (3 Ml) Ud) 3 ml INH RQ4 PRN PRN Reason: Shortness of Breath Cyanocobalamin (Vitamin B12 1000 Mcg/Ml Inj) 1,000 mcg IM DAILY [facility] Last Admin: 01/03/17 08:51 Dose: 1,000 mcg Levofloxacin/Dextrose (Levaquin 500mg) 500 mg in 100 mls @ 100 mls/hr IVPB DAILY [facility] Last Admin: 01/03/17 12:58 Dose: 100 mls/hr Ceftriaxone Sodium 1 gm/ (Sodium Chloride) 100 mls @ 100 mls/hr IVPB DAILY [facility] Last Admin: 01/03/17 12:57 Dose: 100 mls/hr Ibuprofen (Motrin Tab) 600 mg PO Q6 PRN PRN Reason: Pain, moderate (4-7) Last Admin: 01/03/17 23:44 Dose: 600 mg Promethazine HCl/Dextromethorphan (Phenergan Dm Syrup) 5 ml PO Q6 PRN PRN Reason: Cough Last Admin: 01/04/17 04:15 Dose: 5 ml - Labs Labs: 01/04/17 06:20 01/03/17 07:40 PT 11.4 Seconds (9.8-13.1) 12/30/16 23:44 INR 1.1 (0.9-1.2) 12/30/16 23:44 APTT 34.4 Seconds (25.6-37.1) 12/30/16 23:44 - Constitutional Appears: Well, Non-toxic, No Acute Distress - Head Exam Head Exam: ATRAUMATIC, NORMAL INSPECTION, NORMOCEPHALIC - Eye Exam Eye Exam: EOMI, Normal appearance, PERRL Pupil Exam: NORMAL ACCOMODATION, PERRL - ENT Exam ENT Exam: Mucous Membranes Moist, Normal Exam - Neck Exam Neck Exam: Full ROM, Normal Inspection. absent: Lymphadenopathy - Respiratory Exam Respiratory Exam: Clear to Ausculation Bilateral, NORMAL BREATHING PATTERN - Cardiovascular Exam Cardiovascular Exam: REGULAR RHYTHM, RRR, +S1, +S2. absent: Murmur - GI/Abdominal Exam GI & Abdominal Exam: Soft, Normal Bowel Sounds. absent: Tenderness - Extremities Exam Extremities Exam: Full ROM, Normal Capillary Refill, Normal Inspection. absent : Joint Swelling, Pedal Edema - Back Exam Back Exam: NORMAL INSPECTION - Neurological Exam Neurological Exam: Alert, Awake, CN II-XII Intact, Normal Gait, Oriented x3 - Psychiatric Exam Psychiatric exam: Normal Affect, Normal Mood - Skin Skin Exam: Dry, Intact, Normal Color, Warm Assessment and Plan (1) DVT prophylaxis Assessment & Plan: scd and ae hose ambulation lovenox Status: Acute (2) Leukocytosis Assessment & Plan: heme/onc trend wbc pending flow cytometry Status: Acute (3) Pneumonia Assessment & Plan: cont anbx phenergen/mucinex o2 prn pt will need 1 wk iv anbx on tcu-rocephin/levaquin Status: Acute
[2017-01-04] MEDS: levoFLOXacin 500 mg in D5W 500 MG/100 ML BAG IVPB SCH (09:09)
--- NOTE | 2017-01-04 11:39 | RAD ---
HISTORY: pna, leukocytosis COMPARISON: Chest 01/01/2017. TECHNIQUE: Chest PA and lateral FINDINGS: LUNGS: No active pulmonary disease. PLEURA: No significant pleural effusion identified. No pneumothorax apparent. CARDIOVASCULAR: Normal. OSSEOUS STRUCTURES: No significant abnormalities. VISUALIZED UPPER ABDOMEN: Normal. OTHER FINDINGS: Skin paul again seen the bilateral lateral chest wall regions. IMPRESSION: No acute infiltrate pleural effusion or pneumothorax identified at this time.
[2017-01-04 16:32] VITALS: O2SAT 99
[2017-01-04 20:56] VITALS: BP 150/78; PULSE 64; RESP 20; TEMP 97.8
--- NOTE | 2017-01-05 20:02 | CP.PCM.DIS ---
Provider - Provider Date of Admission: 12/31/16 00:26 Attending physician: Dante Salazar MD Time Spent in preparation of Discharge (in minutes): 15 Diagnosis - Discharge Diagnosis (1) DVT prophylaxis Status: Acute (2) Leukocytosis Status: Acute (3) Pneumonia Status: Acute Hospital Course - Lab Results Lab Results: Micro Results 12/30/16 23:25 Blood-Venous Blood Culture - Final NO GROWTH AFTER 5 DAYS 12/30/16 23:25 Blood-Venous Gram Stain - Final TEST NOT PERFORMED 12/30/16 23:15 Blood-Venous Blood Culture - Final NO GROWTH AFTER 5 DAYS 12/30/16 23:15 Blood-Venous Gram Stain - Final TEST NOT PERFORMED 01/01/17 17:33 Sputum Gram Stain - Final 01/01/17 17:33 Sputum Sputum Culture - Final NORMAL ORAL EDITH 12/31/16 00:28 Urine,Clean Catch Urine Culture - Final No Growth (<1,000 CFU/ML) Most Recent Lab Values WBC 32.9 K/uL (4.8-10.8) H 01/04/17 06:20 RBC 3.65 Mil/uL (4.40-5.90) L 01/04/17 06:20 Hgb 11.0 g/dL (12.0-18.0) L 01/04/17 06:20 Hct 34.1 % (35.0-51.0) L 01/04/17 06:20 MCV 93.2 fl (80.0-94.0) 01/04/17 06:20 MCH 30.1 pg (27.0-31.0) 01/04/17 06:20 MCHC 32.2 g/dL (33.0-37.0) L 01/04/17 06:20 RDW 15.3 % (11.5-14.5) H 01/04/17 06:20 Plt Count 168 K/uL (130-400) 01/04/17 06:20 MPV 8.3 fl (7.2-11.7) 01/04/17 06:20 Neut % (Auto) 9.7 % (50.0-75.0) L 01/04/17 06:20 Lymph % (Auto) 87.2 % (20.0-40.0) H 01/04/17 06:20 [place] % (Auto) 2.1 % (0.0-10.0) 01/04/17 06:20 Eos % (Auto) 0.9 % (0.0-4.0) 01/04/17 06:20 Baso % (Auto) 0.1 % (0.0-2.0) 01/04/17 06:20 Neut # 3.2 K/uL (1.8-7.0) 01/04/17 06:20 Lymph # 28.7 K/uL (1.0-4.3) H 01/04/17 06:20 [place] # 0.7 K/uL (0.0-0.8) 01/04/17 06:20 Eos # 0.3 K/uL (0.0-0.7) 01/04/17 06:20 Baso # 0.0 K/uL (0.0-0.2) 01/04/17 06:20 Total Counted Cancelled 01/02/17 05:45 Neutrophils % (Manual) 8 % (42-75) L 01/03/17 07:40 Band Neutrophils % 1 % (0-2) 01/03/17 07:40 Lymphocytes % (Manual) 88 % (20-50) H 01/03/17 07:40 Reactive Lymphs % Cancelled 01/02/17 05:45 Monocytes % (Manual) 2 % (0-10) 01/03/17 07:40 Eosinophils % (Manual) 1 % (0-7) 01/03/17 07:40 Basophils % (Manual) Cancelled 01/02/17 05:45 Metamyelocytes % Cancelled 01/02/17 05:45 Myelocytes % Cancelled 01/02/17 05:45 Promyelocytes % Cancelled 01/02/17 05:45 Blast Cells % Cancelled 01/02/17 05:45 Plasma Cell % (Manual) Cancelled 01/02/17 05:45 Nucleated RBC % Cancelled 01/02/17 05:45 Hypersegmented Polys Cancelled 01/02/17 05:45 Smudge Cells Present 01/03/17 07:40 Toxic Granulation Cancelled 01/02/17 05:45 Dohle Bodies Cancelled 01/02/17 05:45 Ana Paula Rods Cancelled 01/02/17 05:45 Platelet Estimate Normal (NORMAL) 01/03/17 07:40 Plt Clumps, EDTA Cancelled 01/02/17 05:45 Large Platelets Cancelled 01/02/17 05:45 Giant Platelets Cancelled 01/02/17 05:45 RBC Morphology Cancelled 01/02/17 05:45 Polychromasia Cancelled 01/02/17 05:45 Hypochromasia (manual) Slight 01/03/17 07:40 Poikilocytosis (manual Cancelled 01/02/17 05:45 Basophilic Stippling Cancelled 01/02/17 05:45 Anisocytosis (manual) Slight 01/03/17 07:40 Microcytosis (manual) Cancelled 01/02/17 05:45 Macrocytosis (manual) Cancelled 01/02/17 05:45 Spherocytes Cancelled 01/02/17 05:45 Sickle Cells Cancelled 01/02/17 05:45 Target Cells Cancelled 01/02/17 05:45 Tear Drop Cells Slight 01/03/17 07:40 Ovalocytes Slight 01/03/17 07:40 Stomatocytes Cancelled 01/02/17 05:45 Helmet Cells Cancelled 01/02/17 05:45 [place] Bodies Cancelled 01/02/17 05:45 [place] Cells Cancelled 01/02/17 05:45 Acanthocytes (Spur) Cancelled 01/02/17 05:45 Rouleaux Cancelled 01/02/17 05:45 Schistocytes Slight 01/03/17 07:40 PT 11.4 Seconds (9.8-13.1) 12/30/16 23:44 INR 1.1 (0.9-1.2) 12/30/16 23:44 APTT 34.4 Seconds (25.6-37.1) 12/30/16 23:44 D-Dimer, Quantitative 289 ng/mlDDU (0-230) H 12/30/16 21:50 pO2 50 mm/Hg (30-55) 12/30/16 23:36 VBG pH 7.45 (7.32-7.43) H 12/30/16 23:36 VBG pCO2 41 mmHg (40-60) 12/30/16 23:36 VBG HCO3 27.8 mmol/L 12/30/16 23:36 VBG Total CO2 29.8 mmol/L (22-28) H 12/30/16 23:36 VBG O2 Sat (Calc) 93.0 % (40-65) H 12/30/16 23:36 VBG Base Excess 4.1 mmol/L (0.0-2.0) H 12/30/16 23:36 VBG Potassium 3.4 mmol/L (3.6-5.2) L 12/30/16 23:36 Sodium 136.0 mmol/L (132-148) 12/30/16 23:36 Chloride 106.0 mmol/L (98-107) 12/30/16 23:36 Glucose 101 mg/dL (75-110) 12/30/16 23:36 Lactate 1.0 mmol/L (0.7-2.1) 12/30/16 23:36 FiO2 21.0 % 12/30/16 23:36 Sodium 142 mmol/l (132-148) 01/04/17 06:20 Potassium 4.1 MMOL/L (3.6-5.0) 01/04/17 06:20 Chloride 106 mmol/L (98-107) 01/04/17 06:20 Carbon Dioxide 23 mmol/L (22-30) 01/04/17 06:20 Anion Gap 17 (10-20) 01/04/17 06:20 BUN 18 mg/dl (9-20) 01/04/17 06:20 Creatinine 1.1 mg/dL (0.8-1.5) 01/04/17 06:20 Est GFR ( Amer) > 60 01/04/17 06:20 Est GFR (Non-Af Amer) > 60 01/04/17 06:20 POC Glucose (mg/dL) 76 mg/dL (65-110) 01/03/17 05:49 Random Glucose 81 mg/dL (75-110) 01/04/17 06:20 Calcium 9.3 mg/dL (8.4-10.2) 01/04/17 06:20 Iron 100 ug/dL (49-181) 12/31/16 11:51 TIBC 323 ug/dL (250-450) 12/31/16 11:51 % Saturation 31 % (20-55) 12/31/16 11:51 Ferritin 30.9 ng/mL 12/31/16 11:51 Total Bilirubin 0.4 mg/dl (0.2-1.3) 01/04/17 06:20 AST 16 U/L (17-59) L 01/04/17 06:20 ALT 22 U/L (21-72) 01/04/17 06:20 Alkaline Phosphatase 58 U/L (38-126) 01/04/17 06:20 Troponin I < 0.0120 ng/mL (0.00-0.120) 12/30/16 21:50 NT-Pro-B Natriuret Pep 166 pg/ml (0-900) 12/30/16 21:50 Total Protein 6.2 G/DL (6.3-8.2) L 01/04/17 06:20 Albumin 3.6 g/dL (3.5-5.0) 01/04/17 06:20 Globulin 2.6 gm/dL (2.2-3.9) 01/04/17 06:20 Albumin/Globulin Ratio 1.4 (1.0-2.1) 01/04/17 06:20 Vitamin B12 234 pg/mL (239-931) L 12/31/16 11:51 Folate 5.9 ng/mL 12/31/16 11:51 Venous Blood Potassium 3.4 mmol/L (3.6-5.2) L 12/30/16 23:36 Discharge Exam - Head Exam Head Exam: ATRAUMATIC, NORMAL INSPECTION, NORMOCEPHALIC Discharge Plan - Discharge Medications Prescriptions: cefTRIAXone 1 gm [Rocephin 1 gram IVPB] 1 gm IVPB DAILY #7 bag levoFLOXacin 500 mg in D5W [Levaquin 500MG] 500 mg IVPB DAILY #7 bag Promethazine DM [Phenergan DM Syrup] 4 ml PO Q6 PRN #250 ml PRN Reason: Cough - Follow Up Plan Condition: FAIR Disposition: REHAB FACILITY/REHAB UNIT Instructions: Community Acquired Pneumonia (DC) Additional Instructions: dx w/ cll by dr brown for 1 wk iv anbx sw to follow on tcu final dx-cll, pna, leukocytosis
== END 2017-01-04 20:30 | DRG 89 ==
LOC: H.ER 20:11 → H.ERHOLD 12-31 00:26 → H.TEL 12-31 02:36 → H.MEDSURG1 01-02 14:35
PROVIDERS: ADMIT Family Medicine; ATTEND Family Medicine
DX: J15.9 Unspecified bacterial pneumonia (principal); E53.8 Deficiency of other specified B group vitamins; I10 Essential (primary) hypertension; D51.0 Vitamin B12 deficiency anemia due to intrinsic factor deficiency; J98.11 Atelectasis; D64.9 Anemia, unspecified; J18.0 Bronchopneumonia, unspecified organism; D72.820 Lymphocytosis (symptomatic); F17.200 Nicotine dependence, unspecified, uncomplicated; H54.11 Blindness, right eye, low vision left eye; H91.90 Unspecified hearing loss, unspecified ear; R07.89 Other chest pain

== ENCOUNTER 2017-01-04 17:00 | Inpatient (IN) | payer MEDICAID ==
[2017-01-04 20:03] VITALS: BMI 20.9
[2017-01-04] MEDS ORDERED: Promethazine DM 6.25 mg-15 mg/5 ml Syrup PO PRN (21:19)
[2017-01-04] MEDS ORDERED: Albuterol-Ipratrop 3 mg / 0.5 (3 ml) UD INH PRN (21:19)
[2017-01-04 21:42] VITALS: RESP 20
[2017-01-05] MEDS ORDERED: levoFLOXacin 500 mg in D5W 500 MG/100 ML BAG IVPB SCH (05:00)
[2017-01-05] MEDS: levoFLOXacin 500 mg in D5W 500 MG/100 ML BAG IVPB SCH (06:13)
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
[2017-01-06] MEDS: levoFLOXacin 500 mg in D5W 500 MG/100 ML BAG IVPB SCH (05:28)
[2017-01-07] MEDS: levoFLOXacin 500 mg in D5W 500 MG/100 ML BAG IVPB SCH (05:12)
[2017-01-07 09:42] LABS: BASO # 0.1 K/uL (0.0-0.2); BASO % 0.1 % (0.0-2.0); EOS # 0.2 K/uL (0.0-0.7); EOS % 0.7 % (0.0-4.0); HEMATOCRIT 34.1 % (35.0-51.0); LYMPH # 33.3 K/uL (1.0-4.3); LYMPH % 90.4 % (20.0-40.0); MEAN CELL VOLUME 93.4 fl (80.0-94.0); MEAN CORPUSCULAR HEMOGLOBIN 29.9 pg (27.0-31.0); MONO # 0.4 K/uL (0.0-0.8); MONO % 1.1 % (0.0-10.0); NEUT # 2.8 K/uL (1.8-7.0); NEUT % 7.7 % (50.0-75.0); NRBC % 0.3 % (0.0-0.0); PLATELET COUNT 170 K/uL (130-400); RED CELL DISTRIBUTION WIDTH 15.1 % (11.5-14.5); WHITE BLOOD COUNT 36.9 K/uL (4.8-10.8)
--- NOTE | 2017-01-07 09:52 | CP.PCM.PN ---
Subjective - Date & Time of Evaluation Date of Evaluation: 01/07/17 Time of Evaluation: 09:51 - Subjective Subjective: doing well, no f/c, n/v/d. decr cough/congestion outpt planning in progress Objective - Vital Signs/Intake and Output Vital Signs (last 24 hours): Temp Pulse Resp BP Pulse Ox 97.0 F L 72 20 111/66 99 01/07/17 08:11 01/07/17 08:11 01/07/17 08:11 01/07/17 08:11 01/07/17 08:11 - Medications Medications: Current Medications Albuterol/Ipratropium (Duoneb 3 Mg/0.5 Mg (3 Ml) Ud) 3 ml INH RQ4 PRN PRN Reason: Shortness of Breath Cyanocobalamin (Vitamin B12 1000 Mcg/Ml Inj) 1,000 mcg IM DAILY [facility] Last Admin: 01/07/17 08:23 Dose: 1,000 mcg Ceftriaxone Sodium 1 gm/ (Sodium Chloride) 100 mls @ 100 mls/hr IVPB DAILY [facility] Last Admin: 01/07/17 08:25 Dose: 100 mls/hr Levofloxacin/Dextrose (Levaquin 500mg) 500 mg in 100 mls @ 100 mls/hr IVPB DAILY@0500 [facility] Last Admin: 01/07/17 05:12 Dose: 100 mls/hr Ibuprofen (Motrin Tab) 600 mg PO Q6 PRN PRN Reason: Pain, moderate (4-7) Last Admin: 01/06/17 23:06 Dose: 600 mg Promethazine HCl/Dextromethorphan (Phenergan Dm Syrup) 4 ml PO Q6 PRN PRN Reason: Cough Last Admin: 01/06/17 23:05 Dose: 4 ml - Labs Labs: 01/07/17 08:50 - Constitutional Appears: Well, Non-toxic, No Acute Distress - Head Exam Head Exam: ATRAUMATIC, NORMAL INSPECTION, NORMOCEPHALIC - Eye Exam Eye Exam: EOMI, Normal appearance, PERRL Pupil Exam: NORMAL ACCOMODATION, PERRL - ENT Exam ENT Exam: Mucous Membranes Moist, Normal Exam - Neck Exam Neck Exam: Full ROM, Normal Inspection. absent: Lymphadenopathy - Respiratory Exam Respiratory Exam: Clear to Ausculation Bilateral, NORMAL BREATHING PATTERN - Cardiovascular Exam Cardiovascular Exam: REGULAR RHYTHM, RRR, +S1, +S2. absent: Murmur - GI/Abdominal Exam GI & Abdominal Exam: Soft, Normal Bowel Sounds. absent: Tenderness - Extremities Exam Extremities Exam: Full ROM, Normal Capillary Refill, Normal Inspection. absent : Joint Swelling, Pedal Edema - Back Exam Back Exam: NORMAL INSPECTION - Neurological Exam Neurological Exam: Alert, Awake, CN II-XII Intact, Normal Gait, Oriented x3 - Psychiatric Exam Psychiatric exam: Normal Affect, Normal Mood - Skin Skin Exam: Dry, Intact, Normal Color, Warm Assessment and Plan (1) CLL (chronic lymphocytic leukemia) Status: Acute (2) DVT prophylaxis Status: Acute (3) Pneumonia Status: Acute - Assessment and Plan (Free Text) Assessment: (1) CLL (chronic lymphocytic leukemia) Assessment and Plan: heme/onc cause of leukocytosis Status: Acute (2) DVT prophylaxis Assessment and Plan: scd and aehose ambulation lovenox Status: Acute (3) Pneumonia Assessment and Plan: 1wk, rocephin/lovenox phenergen/duonebs ibuprofen for peuritic pain Status: Acute
[2017-01-07 10:08] LABS: ALB/GLOB RATIO 1.4 (1.0-2.1); ALKALINE PHOSPHATASE 55 U/L (38-126); ALT/SGPT 23 U/L (21-72); AST/SGOT 15 U/L (17-59); BILIRUBIN,TOTAL 0.6 mg/dl (0.2-1.3); BLOOD UREA NITROGEN 20 mg/dl (9-20); CALCIUM 9.5 mg/dL (8.4-10.2); CARBON DIOXIDE 21 mmol/L (22-30); CHLORIDE 103 mmol/L (98-107); GFR AFRICAN-AMERICAN > 60; GLUCOSE,RANDOM 152 mg/dL (75-110); POTASSIUM 3.7 MMOL/L (3.6-5.0); SODIUM 138 mmol/l (132-148); TOTAL PROTEIN 6.3 G/DL (6.3-8.2)
[2017-01-07 11:34] LABS: EOSINOPHIL 1 % (0-7); NEUTROPHIL 10 % (42-75); REACTIVE LYMPHOCYTES 5 % (0-0); TOTAL CELLS COUNTED 100
[2017-01-07] MEDS: Promethazine DM 6.25 mg-15 mg/5 ml Syrup PO PRN (21:48)
[2017-01-08] MEDS: levoFLOXacin 500 mg in D5W 500 MG/100 ML BAG IVPB SCH (05:01)
[2017-01-08] MEDS: Promethazine DM 6.25 mg-15 mg/5 ml Syrup PO PRN (08:29)
[2017-01-09] MEDS: levoFLOXacin 500 mg in D5W 500 MG/100 ML BAG IVPB SCH (05:33)
[2017-01-09] MEDS: Promethazine DM 6.25 mg-15 mg/5 ml Syrup PO PRN ×2 (10:48→17:21)
--- NOTE | 2017-01-09 19:30 | CP.PCM.PN ---
Subjective - Date & Time of Evaluation Date of Evaluation: 01/09/17 Time of Evaluation: 19:29 - Subjective Subjective: doingwell, no complaitns. nof/c, n/v/d no cough/congestion. Objective - Vital Signs/Intake and Output Vital Signs (last 24 hours): Temp Pulse Resp BP Pulse Ox 97.3 F L 70 20 105/59 L 99 01/09/17 16:07 01/09/17 16:07 01/09/17 16:07 01/09/17 16:07 01/09/17 16:07 - Medications Medications: Current Medications Albuterol/Ipratropium (Duoneb 3 Mg/0.5 Mg (3 Ml) Ud) 3 ml INH RQ4 PRN PRN Reason: Shortness of Breath Cyanocobalamin (Vitamin B12 1000 Mcg/Ml Inj) 1,000 mcg IM DAILY [facility] Last Admin: 01/09/17 09:47 Dose: 1,000 mcg Ceftriaxone Sodium 1 gm/ (Sodium Chloride) 100 mls @ 100 mls/hr IVPB DAILY [facility] Last Admin: 01/09/17 09:55 Dose: 100 mls/hr Levofloxacin/Dextrose (Levaquin 500mg) 500 mg in 100 mls @ 100 mls/hr IVPB DAILY@0500 [facility] Last Admin: 01/09/17 05:33 Dose: 100 mls/hr Ibuprofen (Motrin Tab) 600 mg PO Q6 PRN PRN Reason: Pain, moderate (4-7) Last Admin: 01/08/17 21:36 Dose: 600 mg Promethazine HCl/Dextromethorphan (Phenergan Dm Syrup) 5 ml PO Q6 PRN PRN Reason: Cough Last Admin: 01/09/17 17:21 Dose: 5 ml - Labs Labs: 01/07/17 08:50 01/07/17 08:50 - Constitutional Appears: Well, Non-toxic, No Acute Distress - Head Exam Head Exam: ATRAUMATIC, NORMAL INSPECTION, NORMOCEPHALIC - Eye Exam Eye Exam: EOMI, Normal appearance, PERRL Pupil Exam: NORMAL ACCOMODATION, PERRL - ENT Exam ENT Exam: Mucous Membranes Moist, Normal Exam - Neck Exam Neck Exam: Full ROM, Normal Inspection. absent: Lymphadenopathy - Respiratory Exam Respiratory Exam: Clear to Ausculation Bilateral, NORMAL BREATHING PATTERN - Cardiovascular Exam Cardiovascular Exam: REGULAR RHYTHM, RRR, +S1, +S2. absent: Murmur - GI/Abdominal Exam GI & Abdominal Exam: Soft, Normal Bowel Sounds. absent: Tenderness - Extremities Exam Extremities Exam: Full ROM, Normal Capillary Refill, Normal Inspection. absent : Joint Swelling, Pedal Edema - Back Exam Back Exam: NORMAL INSPECTION - Neurological Exam Neurological Exam: Alert, Awake, CN II-XII Intact, Normal Gait, Oriented x3 - Psychiatric Exam Psychiatric exam: Normal Affect, Normal Mood - Skin Skin Exam: Dry, Intact, Normal Color, Warm Assessment and Plan (1) CLL (chronic lymphocytic leukemia) Status: Acute (2) DVT prophylaxis Status: Acute (3) Pneumonia Status: Acute - Assessment and Plan (Free Text) Assessment: (1) CLL (chronic lymphocytic leukemia) Assessment and Plan: heme/onc cause of leukocytosis Status: Acute (2) DVT prophylaxis Assessment and Plan: scd and aehose ambulation lovenox Status: Acute (3) Pneumonia Assessment and Plan: 1wk, rocephin/lovenox phenergen/duonebs ibuprofen for peuritic pain Status: Acute
[2017-01-10] MEDS: levoFLOXacin 500 mg in D5W 500 MG/100 ML BAG IVPB SCH (05:00)
[2017-01-10] MEDS: Enoxaparin 40 mg Syringe SC SCH (08:09)
[2017-01-10] MEDS: Promethazine DM 6.25 mg-15 mg/5 ml Syrup PO PRN (22:38)
[2017-01-11] MEDS: levoFLOXacin 500 mg in D5W 500 MG/100 ML BAG IVPB SCH (04:59)
[2017-01-11] MEDS: Promethazine DM 6.25 mg-15 mg/5 ml Syrup PO PRN ×2 (06:49→08:31)
--- NOTE | 2017-01-11 07:55 | CP.PCM.DIS ---
Provider - Provider Date of Admission: 01/04/17 21:13 Attending physician: Dante Salazar MD Time Spent in preparation of Discharge (in minutes): 15 Diagnosis - Discharge Diagnosis (1) CLL (chronic lymphocytic leukemia) Status: Acute (2) DVT prophylaxis Status: Acute (3) Pneumonia Status: Acute Hospital Course - Lab Results Lab Results: Most Recent Lab Values WBC 36.9 K/uL (4.8-10.8) H 01/07/17 08:50 RBC 3.65 Mil/uL (4.40-5.90) L 01/07/17 08:50 Hgb 10.9 g/dL (12.0-18.0) L 01/07/17 08:50 Hct 34.1 % (35.0-51.0) L 01/07/17 08:50 MCV 93.4 fl (80.0-94.0) 01/07/17 08:50 MCH 29.9 pg (27.0-31.0) 01/07/17 08:50 MCHC 32.0 g/dL (33.0-37.0) L 01/07/17 08:50 RDW 15.1 % (11.5-14.5) H 01/07/17 08:50 Plt Count 170 K/uL (130-400) 01/07/17 08:50 MPV 9.0 fl (7.2-11.7) 01/07/17 08:50 Neut % (Auto) 7.7 % (50.0-75.0) L 01/07/17 08:50 Lymph % (Auto) 90.4 % (20.0-40.0) H 01/07/17 08:50 [place] % (Auto) 1.1 % (0.0-10.0) 01/07/17 08:50 Eos % (Auto) 0.7 % (0.0-4.0) 01/07/17 08:50 Baso % (Auto) 0.1 % (0.0-2.0) 01/07/17 08:50 Neut # 2.8 K/uL (1.8-7.0) 01/07/17 08:50 Lymph # 33.3 K/uL (1.0-4.3) H 01/07/17 08:50 [place] # 0.4 K/uL (0.0-0.8) 01/07/17 08:50 Eos # 0.2 K/uL (0.0-0.7) 01/07/17 08:50 Baso # 0.1 K/uL (0.0-0.2) 01/07/17 08:50 Neutrophils % (Manual) 10 % (42-75) L 01/07/17 08:50 Lymphocytes % (Manual) 81 % (20-50) H 01/07/17 08:50 Reactive Lymphs % 5 % (0-0) H 01/07/17 08:50 Monocytes % (Manual) 3 % (0-10) 01/07/17 08:50 Eosinophils % (Manual) 1 % (0-7) 01/07/17 08:50 Platelet Estimate Normal (NORMAL) 01/07/17 08:50 Poikilocytosis (manual Slight 01/07/17 08:50 Anisocytosis (manual) Moderate 01/07/17 08:50 Sodium 138 mmol/l (132-148) 01/07/17 08:50 Potassium 3.7 MMOL/L (3.6-5.0) 01/07/17 08:50 Chloride 103 mmol/L (98-107) 01/07/17 08:50 Carbon Dioxide 21 mmol/L (22-30) L 01/07/17 08:50 Anion Gap 18 (10-20) 01/07/17 08:50 BUN 20 mg/dl (9-20) 01/07/17 08:50 Creatinine 0.9 mg/dL (0.8-1.5) 01/07/17 08:50 Est GFR ( Amer) > 60 01/07/17 08:50 Est GFR (Non-Af Amer) > 60 01/07/17 08:50 POC Glucose (mg/dL) 86 mg/dL (65-110) 01/07/17 05:35 Random Glucose 152 mg/dL (75-110) H 01/07/17 08:50 Calcium 9.5 mg/dL (8.4-10.2) 01/07/17 08:50 Total Bilirubin 0.6 mg/dl (0.2-1.3) 01/07/17 08:50 AST 15 U/L (17-59) L 01/07/17 08:50 ALT 23 U/L (21-72) 01/07/17 08:50 Alkaline Phosphatase 55 U/L (38-126) 01/07/17 08:50 Total Protein 6.3 G/DL (6.3-8.2) 01/07/17 08:50 Albumin 3.7 g/dL (3.5-5.0) 01/07/17 08:50 Globulin 2.6 gm/dL (2.2-3.9) 01/07/17 08:50 Albumin/Globulin Ratio 1.4 (1.0-2.1) 01/07/17 08:50 Discharge Exam - Head Exam Head Exam: ATRAUMATIC, NORMAL INSPECTION, NORMOCEPHALIC - Eye Exam Eye Exam: EOMI, Normal appearance, PERRL Pupil Exam: NORMAL ACCOMODATION, PERRL - Respiratory Exam Respiratory Exam: Clear to PA & Lateral, NORMAL BREATHING PATTERN, UNREMARKABLE - Cardiovascular Exam Cardiovascular Exam: REGULAR RHYTHM, RRR, +S1, +S2 - GI/Abdominal Exam GI & Abdominal Exam: Normal Bowel Sounds, Soft, Unremarkable - Extremities Exam Extremities exam: full ROM, normal capillary refill, normal inspection, pedal pulses present - Back Exam Back exam: FULL ROM - Neurological Exam Neurological exam: Alert, CN II-XII Intact, Normal Gait, Oriented x3, Reflexes Normal - Psychiatric Exam Psychiatric exam: Normal Affect, Normal Mood - Skin Skin Exam: Dry, Intact, Normal Color, Warm Discharge Plan - Discharge Medications Prescriptions: Albuterol HFA [Ventolin HFA 90 mcg/actuation (8 g)] 2 puff IH [id number] #1 puff Ibuprofen [Motrin Tab] 600 mg PO Q6 PRN #30 tab PRN Reason: Pain, Moderate (4-7) Promethazine DM [Phenergan DM Syrup] 10 ml PO Q6 PRN #250 ml PRN Reason: Cough - Follow Up Plan Condition: GOOD Disposition: HOME/ ROUTINE Additional Instructions: pt w/o complaitns. for dc f/u pmd in [place]. advised to see heme/onc as well. repeat bw 1 week meds to hospital pharm final dx- pna, cll rted prn
[2017-01-11] MEDS: Enoxaparin 40 mg Syringe SC SCH (08:29)
[2017-01-11 08:36] VITALS: BP 137/80; PULSE 66; TEMP 97; O2SAT 99
== END 2017-01-11 11:00 | disposition home or self-care (01) | DRG 578 ==
LOC: H.TCU 21:13
PROVIDERS: ADMIT Family Medicine; ATTEND Family Medicine
PROC: 3E03329 Introduction of Other Anti-infective into Peripheral Vein, Percutaneous Approach (ICD-10-PCS; principal; 2017-01-04)
PROC: F07M6FZ Therapeutic Exercise Treatment of Musculoskeletal System - Whole Body using Assistive, Adaptive, Supportive or Protective Equipment (ICD-10-PCS; 2017-01-04)
DX: C91.10 Chronic lymphocytic leukemia of B-cell type not having achieved remission (principal); J18.9 Pneumonia, unspecified organism; I10 Essential (primary) hypertension; H91.90 Unspecified hearing loss, unspecified ear; Z87.01 Personal history of pneumonia (recurrent); F17.210 Nicotine dependence, cigarettes, uncomplicated; H54.7 Unspecified visual loss

== ENCOUNTER 2017-09-11 15:01 | Emergency (ER) | payer MEDICAID ==
[2017-09-11 15:01] VITALS: BMI 20.9
[2017-09-11 15:10] VITALS: RESP 18
[2017-09-11 17:16] LABS: BASO % 0.2 % (0.0-2.0); EOS # 0.1 K/uL (0.0-0.7); EOS % 0.4 % (0.0-4.0); HEMOGLOBIN 10.2 g/dL (12.0-18.0); LYMPH # 13.7 K/uL (1.0-4.3); LYMPH % 76.1 % (20.0-40.0); MEAN CELL VOLUME 90.3 fl (80.0-94.0); MEAN CORPUSCULAR HEMOGLOBIN 29.9 pg (27.0-31.0); MEAN CORPUSCULAR HGB CONC 33.1 g/dL (33.0-37.0); MEAN PLATELET VOLUME 7.6 fl (7.2-11.7); MONO # 0.2 K/uL (0.0-0.8); MONO % 1.4 % (0.0-10.0); NEUT # 3.9 K/uL (1.8-7.0); NEUT % 21.9 % (50.0-75.0); NRBC % 0.3 % (0.0-0.0); PLATELET COUNT 146 K/uL (130-400); RBC 3.43 Mil/uL (4.40-5.90); RED CELL DISTRIBUTION WIDTH 17.4 % (11.5-14.5)
[2017-09-11 17:32] LABS: ALB/GLOB RATIO 1.2 (1.0-2.1); ALBUMIN 3.5 g/dL (3.5-5.0); ALT/SGPT 35 U/L (21-72); AST/SGOT 24 U/L (17-59); BLOOD UREA NITROGEN 15 mg/dl (9-20); CALCIUM 9.3 mg/dL (8.4-10.2); GFR AFRICAN-AMERICAN > 60; GFR NON-AFRICAN AMERICAN > 60; LIPASE 24 U/L (23-300)
[2017-09-11 17:45] LABS: PARTIAL THROMBOPLASTIN TIME 41.9 Seconds (25.6-37.1); PROTHROMBIN TIME 11.6 Seconds (9.8-13.1)
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
[2017-09-11 18:09] LABS: BARBITURATES, UR NEGATIVE (NEGATIVE); BENZODIAZEPINES, UR NEGATIVE (NEGATIVE); OPIATES, UR NEGATIVE (NEGATIVE); PHENCYCLIDINE, UR NEGATIVE (NEGATIVE)
--- NOTE | 2017-09-11 18:54 | RAD ---
HISTORY: chest discomfort COMPARISON: Comparison is made with 01/04/2017 TECHNIQUE: Chest PA and lateral FINDINGS: LUNGS: Hyperinflation of the lungs is again noted. No evidence of new infiltrate or consolidation in the lungs. PLEURA: No significant pleural effusion identified. No pneumothorax apparent. CARDIOVASCULAR: Normal. OSSEOUS STRUCTURES: No significant interval change in the osseous structure noted VISUALIZED UPPER ABDOMEN: Normal. OTHER FINDINGS: None. IMPRESSION: No active disease. No significant interval change.
[2017-09-11 19:10] LABS: ANISOCYTOSIS SLIGHT; BANDS 2 % (0-2); LYMPHOCYTE 70 % (20-50); MONOCYTE 1 % (0-10); NEUTROPHIL 27 % (42-75); TOTAL CELLS COUNTED 100
[2017-09-11 19:11] LABS: POIKILOCYTOSIS SLIGHT
[2017-09-11 19:12] LABS: HYPOCHROMIC SLIGHT; STOMATOCYTES SLIGHT; TARGET CELLS SLIGHT; TOXIC GRANULATION PRESENT
[2017-09-11 19:14] LABS: PLATELET ESTIMATE NORMAL (NORMAL)
[2017-09-11 20:12] VITALS: BP 136/78; PULSE 78; TEMP 97.9; O2SAT 98
== END 2017-09-11 20:12 | disposition home or self-care (01) ==
LOC: H.ER 15:01
DX: R07.89 Other chest pain (principal); D72.829 Elevated white blood cell count, unspecified; D64.9 Anemia, unspecified; F17.200 Nicotine dependence, unspecified, uncomplicated; I10 Essential (primary) hypertension
CPT/HCPCS: 71046; 80053; 80320; 80324; 80345; 80346; 80349; 80353; 80358; 80361; 83605; 83690; 83735; 83992; 84100; 84484; 85025; 85610; 85730; 87040; 96374; 99284; J1885

== ENCOUNTER 2017-11-11 22:50 | Inpatient (IN) | payer MEDICAID ==
[2017-11-11 22:50] VITALS: BMI 20.9
[2017-11-11] MEDS ORDERED: Sodium Chloride 0.9% 1,000 ML IV STA (23:05)
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
[2017-11-11 23:43] LABS: BASO # 0.1 K/uL (0.0-0.2); BASO % 0.1 % (0.0-2.0); EOS # 0.4 K/uL (0.0-0.7); EOS % 0.6 % (0.0-4.0); HEMOGLOBIN 10.2 g/dL (12.0-18.0); LYMPH # 58.1 K/uL (1.0-4.3); MEAN CELL VOLUME 92.1 fl (80.0-94.0); MEAN CORPUSCULAR HEMOGLOBIN 30.4 pg (27.0-31.0); MEAN PLATELET VOLUME 7.6 fl (7.2-11.7); MONO # 1.5 K/uL (0.0-0.8); MONO % 2.4 % (0.0-10.0); NEUT # 2.4 K/uL (1.8-7.0); NEUT % 3.9 % (50.0-75.0); NRBC % 0.3 % (0.0-0.0); PLATELET COUNT 156 K/uL (130-400); RBC 3.36 Mil/uL (4.40-5.90); RED CELL DISTRIBUTION WIDTH 16.6 % (11.5-14.5)
[2017-11-11 23:44] LABS: VENOUS BLOOD GAS BASE EXCESS -1.9 mmol/L (0.0-2.0); VENOUS BLOOD GAS PCO2 46 mmHg (40-60); VENOUS BLOOD GAS PO2 42 mm/Hg (30-55); VENOUS BLOOD PH 7.33 (7.32-7.43)
[2017-11-11 23:45] LABS: PARTIAL THROMBOPLASTIN TIME 41.9 Seconds (25.6-37.1)
[2017-11-11 23:46] LABS: ALB/GLOB RATIO 1.5 (1.0-2.1); ALBUMIN 3.6 g/dL (3.5-5.0); ALT/SGPT 25 U/L (21-72); AST/SGOT 28 U/L (17-59); BLOOD UREA NITROGEN 21 mg/dl (9-20); CALCIUM 8.7 mg/dL (8.4-10.2); GFR AFRICAN-AMERICAN > 60; GFR NON-AFRICAN AMERICAN > 60
[2017-11-11 23:48] LABS: WHITE BLOOD COUNT 62.5 K/uL (4.8-10.8)
[2017-11-11] MEDS ORDERED: Potassium Chloride 20 mEq ER Tab PO STA (23:48)
[2017-11-12] MEDS ORDERED: Multivitamin (MVI) 10 ML, Thiamine 100 MG, Folic Acid 1 MG in Dextrose 5%/0.45% NS 1,00... IV ONE (00:18)
[2017-11-12 00:37] LABS: URINE BACTERIA RARE (<OCC); URINE BILIRUBIN NEGATIVE (NEGATIVE); URINE BLOOD LARGE (NEGATIVE); URINE CLARITY CLEAR (Clear); URINE COLOR STRAW (YELLOW); URINE GLUCOSE (UA) NEG (Normal); URINE LEUKOCYTE ESTERASE NEG Leu/uL (Negative); URINE PROTEIN NEGATIVE (NEGATIVE); URINE UROBILINOGEN 0.2-1.0 mg/dL (0.2-1.0)
[2017-11-12 00:54] LABS: BARBITURATES, UR NEGATIVE (NEGATIVE); BENZODIAZEPINES, UR NEGATIVE (NEGATIVE); OPIATES, UR NEGATIVE (NEGATIVE); PHENCYCLIDINE, UR NEGATIVE (NEGATIVE)
[2017-11-12 01:06] LABS: EOSINOPHIL 1 % (0-7); LYMPHOCYTE 86 % (20-50); MONOCYTE 5 % (0-10); MYELOCYTE 1 % (0-0); NEUTROPHIL 7 % (42-75); TOTAL CELLS COUNTED 100
[2017-11-12 01:07] LABS: PLATELET ESTIMATE NORMAL (NORMAL)
[2017-11-12] MEDS ORDERED: Potassium Chloride 20 mEq ER Tab PO ONE (01:09)
--- NOTE | 2017-11-12 07:14 | RAD ---
Date of service: 11/11/2017 HISTORY: altered mental status COMPARISON: No prior. FINDINGS: LUNGS: No active pulmonary disease. PLEURA: No significant pleural effusion identified, no pneumothorax apparent. CARDIOVASCULAR: Normal. OSSEOUS STRUCTURES: No significant abnormalities. VISUALIZED UPPER ABDOMEN: Normal. OTHER FINDINGS: None. IMPRESSION: No active disease.
--- NOTE | 2017-11-12 07:40 | CT ---
Date of service: 11/12/2017 PROCEDURE: CT HEAD WITHOUT CONTRAST. HISTORY: confusion COMPARISON: None available. TECHNIQUE: Axial computed tomography images were obtained through the head/brain without intravenous contrast. Radiation dose: Total exam DLP = mGy-cm. This CT exam was performed using one or more of the following dose reduction techniques: Automated exposure control, adjustment of the mA and/or kV according to patient size, and/or use of iterative reconstruction technique. FINDINGS: HEMORRHAGE: No intracranial hemorrhage. BRAIN: No mass effect or edema. No atrophy or chronic microvascular ischemic changes. VENTRICLES: Unremarkable. No hydrocephalus. CALVARIUM: Unremarkable. PARANASAL SINUSES: Unremarkable as visualized. No significant inflammatory changes. MASTOID AIR CELLS: Unremarkable as visualized. No inflammatory changes. OTHER FINDINGS: None. IMPRESSION: Normal CT of the Head.
--- NOTE | 2017-11-12 07:49 | CARD ---
APPROVED REPORT Date of service: 11/12/2017 <Conclusion> Sinus bradycardia Otherwise normal ECG
[2017-11-12 08:46] LABS: HEMOGLOBIN 10.3 g/dL (12.0-18.0); MEAN CELL VOLUME 92.5 fl (80.0-94.0); MEAN CORPUSCULAR HEMOGLOBIN 30.2 pg (27.0-31.0); MEAN CORPUSCULAR HGB CONC 32.6 g/dL (33.0-37.0); RBC 3.41 Mil/uL (4.40-5.90); RED CELL DISTRIBUTION WIDTH 16.6 % (11.5-14.5)
[2017-11-12 08:52] LABS: ALB/GLOB RATIO 1.3 (1.0-2.1); ALBUMIN 3.2 g/dL (3.5-5.0); ALT/SGPT 25 U/L (21-72); AST/SGOT 26 U/L (17-59); BLOOD UREA NITROGEN 16 mg/dl (9-20); CALCIUM 8.5 mg/dL (8.4-10.2); GFR AFRICAN-AMERICAN > 60; GFR NON-AFRICAN AMERICAN > 60
[2017-11-12 09:07] LABS: WHITE BLOOD COUNT 52.9 K/uL (4.8-10.8)
[2017-11-12] MEDS: Dextrose 5%/0.45% NS 1,000 ML IV SCH ×2 (10:24→21:23)
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
[2017-11-13 08:21] VITALS: RESP 20
[2017-11-13 12:02] VITALS: BP 121/78; PULSE 73; TEMP 97.6; O2SAT 98
--- NOTE | 2017-11-13 14:08 | CP.PCM.PN ---
Objective - Vital Signs/Intake and Output Vital Signs (last 24 hours): Temp Pulse Resp BP Pulse Ox 97.6 F 73 20 121/78 98 11/13/17 12:00 11/13/17 12:00 11/13/17 12:00 11/13/17 12:00 11/13/17 12:00 - Labs Labs: 11/12/17 07:47 11/12/17 07:47 PT 11.0 Seconds (9.8-13.1) 11/11/17 23:32 INR 1.0 11/11/17 23:32 APTT 41.9 Seconds (25.6-37.1) H 11/11/17 23:32 Assessment and Plan (1) Altered mental status Status: Acute (2) Leukocytosis Status: Acute (3) Alcohol intoxication Status: Resolved (4) CLL (chronic lymphocytic leukemia) Status: Acute
--- NOTE | 2017-11-13 16:30 | CP.PCM.DIS ---
Provider - Provider Date of Admission: 11/11/17 23:56 Attending physician: John Byrne MD Diagnosis - Discharge Diagnosis (1) Altered mental status Status: Acute Priority: High (2) Leukocytosis Status: Acute Priority: High (3) Alcohol intoxication Status: Resolved Priority: High (4) CLL (chronic lymphocytic leukemia) Status: Acute Priority: High Hospital Course - Lab Results Lab Results: Micro Results 11/12/17 00:20 Urine,Catheterized Urine Culture - Final No Growth (<1,000 CFU/ML) 11/11/17 23:05 Blood-Venous Blood Culture - Preliminary NO GROWTH AFTER 24 HOURS 11/11/17 23:20 Blood-Venous Blood Culture - Preliminary NO GROWTH AFTER 24 HOURS Most Recent Lab Values WBC 52.9 K/uL (4.8-10.8) H* 11/12/17 07:47 RBC 3.41 Mil/uL (4.40-5.90) L 11/12/17 07:47 Hgb 10.3 g/dL (12.0-18.0) L 11/12/17 07:47 Hct 31.5 % (35.0-51.0) L 11/12/17 07:47 MCV 92.5 fl (80.0-94.0) 11/12/17 07:47 MCH 30.2 pg (27.0-31.0) 11/12/17 07:47 MCHC 32.6 g/dL (33.0-37.0) L 11/12/17 07:47 RDW 16.6 % (11.5-14.5) H 11/12/17 07:47 Plt Count 156 K/uL (130-400) 11/12/17 07:47 MPV 7.6 fl (7.2-11.7) 11/11/17 23:32 Neut % (Auto) 3.9 % (50.0-75.0) L 11/11/17 23:32 Lymph % (Auto) 93.0 % (20.0-40.0) H 11/11/17 23:32 [place] % (Auto) 2.4 % (0.0-10.0) 11/11/17 23:32 Eos % (Auto) 0.6 % (0.0-4.0) 11/11/17 23:32 Baso % (Auto) 0.1 % (0.0-2.0) 11/11/17 23:32 Neut # (Auto) 2.4 K/uL (1.8-7.0) 11/11/17 23:32 Lymph # (Auto) 58.1 K/uL (1.0-4.3) H 11/11/17 23:32 [place] # (Auto) 1.5 K/uL (0.0-0.8) H 11/11/17 23:32 Eos # (Auto) 0.4 K/uL (0.0-0.7) 11/11/17 23:32 Baso # (Auto) 0.1 K/uL (0.0-0.2) 11/11/17 23:32 Neutrophils % (Manual) 7 % (42-75) L 11/11/17 23:32 Lymphocytes % (Manual) 86 % (20-50) H 11/11/17 23:32 Monocytes % (Manual) 5 % (0-10) 11/11/17 23:32 Eosinophils % (Manual) 1 % (0-7) 11/11/17 23:32 Myelocytes % 1 % (0-0) H 11/11/17 23:32 Platelet Estimate Normal (NORMAL) 11/11/17 23:32 PT 11.0 Seconds (9.8-13.1) 11/11/17 23:32 INR 1.0 11/11/17 23:32 APTT 41.9 Seconds (25.6-37.1) H 11/11/17 23:32 pO2 42 mm/Hg (30-55) 11/11/17 23:41 VBG pH 7.33 (7.32-7.43) 11/11/17 23:41 VBG pCO2 46 mmHg (40-60) 11/11/17 23:41 VBG HCO3 22.8 mmol/L 11/11/17 23:41 VBG Total CO2 25.7 mmol/L (22-28) 11/11/17 23:41 VBG O2 Sat (Calc) 79.3 % (40-65) H 11/11/17 23:41 VBG Base Excess -1.9 mmol/L (0.0-2.0) L 11/11/17 23:41 VBG Potassium 3.1 mmol/L (3.6-5.2) L 11/11/17 23:41 Sodium 138.0 mmol/L (132-148) 11/11/17 23:41 Chloride 105.0 mmol/L (98-107) 11/11/17 23:41 Glucose 112 mg/dL (75-110) H 11/11/17 23:41 Lactate 1.8 mmol/L (0.7-2.1) 11/11/17 23:41 FiO2 21.0 % 11/11/17 23:41 Sodium 141 mmol/l (132-148) 11/12/17 07:47 Potassium 3.9 MMOL/L (3.6-5.0) 11/12/17 07:47 Chloride 110 mmol/L (98-107) H 11/12/17 07:47 Carbon Dioxide 24 mmol/L (22-30) 11/12/17 07:47 Anion Gap 11 (10-20) 11/12/17 07:47 BUN 16 mg/dl (9-20) 11/12/17 07:47 Creatinine 0.8 mg/dl (0.8-1.5) 11/12/17 07:47 Est GFR ( Amer) > 60 11/12/17 07:47 Est GFR (Non-Af Amer) > 60 11/12/17 07:47 POC Glucose (mg/dL) 118 mg/dL (65-110) H 11/11/17 22:59 Random Glucose 89 mg/dL (75-110) 11/12/17 07:47 Calcium 8.5 mg/dL (8.4-10.2) 11/12/17 07:47 Phosphorus 3.2 mg/dl (2.5-4.5) 11/11/17 23:32 Magnesium 1.8 MG/DL (1.6-2.3) 11/11/17 23:32 Total Bilirubin 0.2 mg/dl (0.2-1.3) 11/12/17 07:47 AST 26 U/L (17-59) 11/12/17 07:47 ALT 25 U/L (21-72) 11/12/17 07:47 Alkaline Phosphatase 56 U/L (38-126) 11/12/17 07:47 Troponin I < 0.0120 ng/mL (0.00-0.120) 11/11/17 23:32 Total Protein 5.6 G/DL (6.3-8.2) L 11/12/17 07:47 Albumin 3.2 g/dL (3.5-5.0) L 11/12/17 07:47 Globulin 2.4 gm/dL (2.2-3.9) 11/12/17 07:47 Albumin/Globulin Ratio 1.3 (1.0-2.1) 11/12/17 07:47 Venous Blood Potassium 3.1 mmol/L (3.6-5.2) L 11/11/17 23:41 Urine Color Straw (YELLOW) 11/12/17 00:20 Urine Clarity Clear (Clear) 11/12/17 00:20 Urine pH 6.0 (5.0-8.0) 11/12/17 00:20 Ur Specific [place] < 1.005 (1.003-1.030) 11/12/17 00:20 Urine Protein Negative mg/dL (NEGATIVE) 11/12/17 00:20 Urine Glucose (UA) Neg mg/dL (Normal) 11/12/17 00:20 Urine Ketones Negative mg/dL (NEGATIVE) 11/12/17 00:20 Urine Blood Large (NEGATIVE) 11/12/17 00:20 Urine Nitrate Negative (NEGATIVE) 11/12/17 00:20 Urine Bilirubin Negative (NEGATIVE) 11/12/17 00:20 Urine Urobilinogen 0.2-1.0 mg/dL (0.2-1.0) 11/12/17 00:20 Ur Leukocyte Esterase Neg Gertrude/uL (Negative) 11/12/17 00:20 Urine RBC (Auto) 9 /hpf (0-3) H 11/12/17 00:20 Urine Microscopic WBC 1 /hpf (0-5) 11/12/17 00:20 Urine Bacteria Rare (<OCC) 11/12/17 00:20 Urine Opiates Screen Negative (NEGATIVE) 11/12/17 00:20 Urine Methadone Screen Negative (NEGATIVE) 11/12/17 00:20 Ur Barbiturates Screen Negative (NEGATIVE) 11/12/17 00:20 Ur Phencyclidine Scrn Negative (NEGATIVE) 11/12/17 00:20 Ur Amphetamines Screen Negative (NEGATIVE) 11/12/17 00:20 U Benzodiazepines Scrn Negative (NEGATIVE) 11/12/17 00:20 U Oth Cocaine Metabols Negative (NEGATIVE) 11/12/17 00:20 U Cannabinoids Screen Negative (NEGATIVE) 11/12/17 00:20 Alcohol, Quantitative 185 mg/dl (0-10) H 11/11/17 23:32 Blood Type O POSITIVE 11/11/17 23:08 Antibody Screen Negative 11/11/17 23:08 BBK History Checked No verified bt 11/11/17 23:08 Discharge Exam - Head Exam Head Exam: NORMAL INSPECTION Discharge Plan - Follow Up Plan Condition: FAIR Disposition: HOME/ ROUTINE Instructions: Leukocytosis (DC), Leukocytosis (GEN)
== END 2017-11-13 14:30 | disposition home or self-care (01) | DRG 750 ==
LOC: H.ER 22:50 → H.ERHOLD 23:56 → H.TEL 11-12 02:30
PROVIDERS: ADMIT Internal Medicine Pulmonary Disease; ATTEND Internal Medicine Pulmonary Disease
DX: F10.129 Alcohol abuse with intoxication, unspecified (principal); E86.0 Dehydration; C91.10 Chronic lymphocytic leukemia of B-cell type not having achieved remission; D72.829 Elevated white blood cell count, unspecified; F17.210 Nicotine dependence, cigarettes, uncomplicated; H91.90 Unspecified hearing loss, unspecified ear; I10 Essential (primary) hypertension; Z59.0 Homelessness; Z79.82 Long term (current) use of aspirin; Z87.01 Personal history of pneumonia (recurrent); Z91.19 Patient's noncompliance with other medical treatment and regimen; R00.1 Bradycardia, unspecified

== ENCOUNTER 2017-12-24 23:19 | Emergency (ER) | payer MEDICAID ==
[2017-12-24 23:19] VITALS: BMI 22.3
[2017-12-24 23:29] VITALS: PULSE 76; RESP 16; TEMP 98; O2SAT 98
[2017-12-25 04:52] VITALS: BP 131/70
--- NOTE | 2017-12-25 05:08 | ED PDOC ---
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 Patient admits to drinking but not excessively. Denies drug use and injuries. PMD: none provided Past Medical History Reviewed: Historical Data, Nursing Documentation, Vital Signs Vital Signs: Last Vital Signs Temp 98.0 F 12/24/17 23:27 Pulse 76 12/24/17 23:27 Resp 16 12/24/17 23:27 BP 131/70 12/25/17 04:51 Pulse Ox 98 12/24/17 23:27 - Medical History PMH: HTN, Malignancy (CLL), Pneumonia Denies: HIV, Chronic Kidney Disease - Surgical History Surgical History: Back Surgery - Family History Family History: States: Unknown Family Hx - Immunization History Hx Tetanus Toxoid Vaccination: No Hx Influenza Vaccination: No Hx Pneumococcal Vaccination: No - Home Medications Home Medications: Ambulatory Orders Medication Instructions Recorded Aspirin 325 mg PO DAILY 11/12/17 Beta-Carotene(A)-Vits C,E/Mins 2 mg PO DAILY 11/12/17 [Ocutabs Tablet] Loperamide [Loperamide HCl] 2 mg PO DAILY 11/12/17 - Allergies Allergies/Adverse Reactions: Allergies Allergy/AdvReac Type Severity Reaction Status Date / Time No Known Allergies Allergy Verified 12/24/17 23:27 Review of Systems ROS Statement: Except As Marked, All Systems Reviewed And Found Negative Physical Exam - Reviewed Nursing Documentation Reviewed: Yes Vital Signs Reviewed: Yes - Physical Exam Appears: Positive for: Non-toxic, No Acute Distress (intoxicated appearing) Head Exam: Positive for: ATRAUMATIC, NORMAL INSPECTION, NORMOCEPHALIC Skin: Positive for: Normal Color, Warm, Dry Eye Exam: Positive for: EOMI, Normal appearance, PERRL Neck: Positive for: Normal, Painless ROM, Supple Cardiovascular/Chest: Positive for: Regular Rate, Rhythm. Negative for: Murmur Respiratory: Positive for: Normal Breath Sounds. Negative for: Respiratory Distress Gastrointestinal/Abdominal: Positive for: Normal Exam, Soft. Negative for: Tenderness Extremity: Positive for: Normal ROM. Negative for: Deformity Neurologic/Psych: Positive for: Alert, Oriented (x 3), Gait (steady). Negative for: Motor/Sensory Deficits - ECG O2 Sat by Pulse Oximetry: 98 (RA) Pulse Ox Interpretation: Normal Medical Decision Making Medical Decision Makin:30 A&P: intoxicated but mild 04:50 --Blood pressure is now normal. --Patient ambulatory and steady. Scribe Attestation: Documented by Estrella Benavidez acting as a scribe for Jovanni Mohan MD Provider Scribe Attestation: All medical record entries made by the Scribe were at my direction and personally dictated by me. I have reviewed the chart and agree that the record accurately reflects my personal performance of the history, physical exam, medical decision making, and the department course for this patient. I have also personally directed, reviewed, and agree with the discharge instructions and disposition. Disposition - Clinical Impression Clinical Impression: Alcohol abuse - Patient ED Disposition Is Patient to be Admitted: No - Disposition Referrals: Alcoholics Anonymous [Outside] Disposition: Routine/Home Disposition Time: 04:50 Condition: STABLE Instructions: Alcohol Abuse and Alcoholism (DC) Forms: [employer] (Japanese)
== END 2017-12-25 05:57 | disposition home or self-care (01) ==
LOC: H.ER 23:19
DX: F10.10 Alcohol abuse, uncomplicated (principal); I10 Essential (primary) hypertension; Z79.82 Long term (current) use of aspirin

== ENCOUNTER 2018-01-02 20:24 | Emergency (ER) | payer MEDICAID ==
[2018-01-02 20:25] VITALS: BMI 22.3
[2018-01-02 20:38] VITALS: RESP 18; TEMP 98
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
[2018-01-02 21:53] VITALS: BP 146/87; PULSE 73
[2018-01-03 00:02] VITALS: O2SAT 100
== END 2018-01-02 21:40 ==
LOC: H.ER 20:24
DX: F43.20 Adjustment disorder, unspecified (principal); Z00.8 Encounter for other general examination; F17.210 Nicotine dependence, cigarettes, uncomplicated; I10 Essential (primary) hypertension; Z79.82 Long term (current) use of aspirin